=== PATIENT | male | born 1945 | race Two or more races ===

== ENCOUNTER 2020-04-17 18:52 | Inpatient (IN) | payer MEDICARE, OTHER ==
[~2020-04-17] VITALS: Ht 177.8 cm; Wt 129.9 kg
[2020-04-17] MEDS ORDERED: PIPERACILLIN-TAZO 4.5GM 100 ML IV ONE (19:45)
[2020-04-17] MEDS ORDERED: SODIUM CHLORIDE 0.9% 2,000 ML IV ONE (19:45)
[2020-04-17] MEDS ORDERED: HYDROcodone-ACET 10/325MG TAB PO ONE (21:30)
[2020-04-17 22:01] LABS: Lactic Acid w/Reflex 2.1 mmol/L (0.4-2.0)
[2020-04-17 22:37] LABS: Urine Bacteria MANY /hpf (None Seen); Urine Blood TRACE /uL (Negative); Urine WBC 17 /hpf (0 - 3)
[2020-04-17 22:56] LABS: Basophils # (auto) 0 10 ^3/uL (0-0.2); Basophils % (auto) 0.3 % (0.0-2.0); Eosinophils # (auto) 0 10 ^3/uL (0-0.8); Eosinophils % (auto) 0.1 % (0.0-7.0); Hematocrit 38.9 % (41.0-53.0); Hemoglobin 12.8 g/dL (13.5-17.5); Lymphocytes # (auto) 0.9 10 ^3/uL (0.4-5.4); Lymphocytes % (auto) 13.1 % (10.0-50.0); Mean Corpuscular Hemoglobin 31.8 pg (28.0-32.0); Mean Corpuscular Hgb Conc. 32.9 g/dL (32.0-36.0); Mean Corpuscular Volume 96.8 fL (80.0-100.0); Monocytes # (auto) 0.7 10 ^3/uL (0-1.3); Monocytes % (auto) 10.3 % (0.0-12.0); Neutrophils # (auto) 5.4 10 ^3/uL (1.6-8.6); Neutrophils % (auto) 76.2 % (37.0-80.0); Nucleated Red Blood Cells % 0.1 %; Platelet Count (auto) 171 10^3/uL (140-450); Red Blood Cells 4.02 10^6/uL (4.5-5.90); Red Cell Distribution Width 14.5 % (11.8-14.3); White Blood Cell 7.1 10^3/uL (4.4-10.8)
[2020-04-17 23:00] LABS: Albumin 3.3 g/dL (3.4-5.0); Bilirubin, Total 0.5 mg/dL (0.2-1.0); Calcium 8.1 mg/dL (8.5-10.1); Magnesium 1.9 mg/dL (1.6-2.6); Potassium 3.6 mmol/L (3.5-5.1); Total Protein 6.6 g/dL (6.4-8.2)
[2020-04-17 23:15] LABS: BUN/Creatinine Ratio 16.9
[2020-04-17] MEDS ORDERED: ENOXAPARIN SOD 120 MG/0.8 ML SYRINGE SC ONE (23:30)
[2020-04-17 23:31] LABS: CRP High Sensitivity 7.46 mg/dL (< 0.3)
[2020-04-17] MEDS ORDERED: AZITHROMYCIN 500MG/ 250ML 250 ML IV ONE (23:45)
[2020-04-18] MEDS ORDERED: SODIUM CHLORIDE 0.9% 1,000 ML IV SCH (00:31)
[2020-04-18] MEDS ORDERED: ONDANSETRON HCL 4 MG/2 ML VIAL IV PRN (00:45)
[2020-04-18] MEDS ORDERED: DEXTROSE (50%) 50ML SYRG IV PRN (00:45)
[2020-04-18] MEDS ORDERED: NITROGLYCERIN 0.4 MG SL TAB SL PRN (00:45)
[2020-04-18] MEDS ORDERED: MORPHINE SULF INJ 2 MG/ML SYRINGE 1ML IV PRN (00:45)
[2020-04-18] MEDS ORDERED: ALBUMIN 5% 250 ML IV ONE (00:45)
[2020-04-18 05:15] VITALS: BP 125/89
[2020-04-18 06:13] VITALS: BP 125/89
[2020-04-18] MEDS: FUROSEMIDE 40 MG TAB PO SCH ×2 (06:25→18:22)
[2020-04-18] MEDS: ACCU-CHEK COMFORT CURVE STRIP VI SCH ×4 (06:25→23:35)
[2020-04-18] MEDS ORDERED: FLUT0.05 NAS (06:44)
[2020-04-18] MEDS ORDERED: TACR1CAP19 OR (06:44)
[2020-04-18] MEDS ORDERED: FURO20TA3 PO (06:44)
[2020-04-18] MEDS ORDERED: INSR100KIT SC (06:44)
[2020-04-18] MEDS ORDERED: CHOL200039 PO (06:44)
[2020-04-18] MEDS ORDERED: MAGN400T40 OR (06:44)
[2020-04-18] MEDS ORDERED: BACL10TA PO (06:44)
[2020-04-18] MEDS ORDERED: LATA0.0019 OP (06:44)
[2020-04-18] MEDS ORDERED: METF-929 PO (06:44)
[2020-04-18] MEDS ORDERED: MYCO250C PO (06:44)
[2020-04-18] MEDS ORDERED: ASPI81CH43 PO (06:44)
[2020-04-18] MEDS ORDERED: ALBU2TAB4 PO (06:44)
[2020-04-18] MEDS ORDERED: PANT1INJ3 PO (06:44)
[2020-04-18] MEDS ORDERED: LOSA25TA38 PO (06:44)
[2020-04-18] MEDS ORDERED: METO-169 PO (06:44)
[2020-04-18] MEDS ORDERED: CALC667C PO (06:44)
[2020-04-18] MEDS ORDERED: ATOR40TA52 PO (06:44)
[2020-04-18] MEDS ORDERED: GABA300C10 PO (06:44)
[2020-04-18] MEDS ORDERED: ALLO300T2 PO (06:44)
[2020-04-18] MEDS ORDERED: TAMS0.4C36 PO (06:44)
[2020-04-18] MEDS ORDERED: BUDE2SUS3 IN (06:44)
[2020-04-18] MEDS ORDERED: DULO60CA PO (06:44)
[2020-04-18] MEDS: InsuLIN REG 1unit/0.01ml Soln (100units/ml) SC SCH ×4 (06:46→23:37)
--- NOTE | 2020-04-18 07:15 | NUR ---
Respiratory note: PT IS RESTING COMFORTABLY. NO RESPIRATORY DISTRESS NOTED. SPO2 97% ON 4LNC, HR 98, RR 22, BS CLEAR BILATERALLY. NO FURTHER RESPIRATORY INTERVENTIONS INDICATED AT THIS TIME. WILL CONTINUE TO MONITOR PT. CHARTING COMPLETE FROM OUTSIDE OF PT ROOM PER COVID-19 PRECAUTIONS/PROTOCOL.
--- NOTE | 2020-04-18 08:39 | NUR ---
OPENING SHIFT NOTE: PATIENT RESTING IN BED AWAKE A/OX4 PATIENT RESPIRATIONS EVEN AND UNLABORED ON ROOM AIR. UPDATED ON PLAN OF CARE, FALL PRECAUTIONS IN PLACE, CALL LIGHT WITHIN REACH, WILL CONTINUE TO MONITOR.
[2020-04-18 09:00] VITALS: BP_SYST 121; BP_SYST 124; BP_DIAS 61; BP_DIAS 67
--- NOTE | 2020-04-18 09:13 | NUR ---
CELLCEPT MED PO: CALL FROM PHARMACIST FOR PROPER DOSAGE AND ROUTE. 0.9ML PO DOUBLE VERIFIED.
[2020-04-18] MEDS ORDERED: DexAMETHasone SOD PHOS 10MG/1ML VIAL INJ IV SCH (10:00)
[2020-04-18] MEDS ORDERED: MYCOPHENOLATE 250 MG CAP PO SCH (10:00)
[2020-04-18] MEDS ORDERED: ENOXAPARIN SOD 40 MG/0.4 ML SYRINGE SC SCH (10:00)
[2020-04-18] MEDS ORDERED: METOPROLOL TARTRATE 50 MG TAB PO SCH (10:00)
[2020-04-18] MEDS ORDERED: DOXYCYCLINE 100MG/250ML 250 ML IV SCH (10:00)
[2020-04-18] MEDS ORDERED: levoFLOXacin 500MG 100 ML IV SCH (10:00)
[2020-04-18] MEDS: ZINC SULFATE 220mg CAP or TAB PO SCH (10:35)
[2020-04-18] MEDS: MYCOPHENOLATE 1000mg/5ml ORALsusp 200mg/ml PO SCH ×2 (10:35→21:00)
[2020-04-18] MEDS: FAMOTIDINE 20 MG TAB PO SCH ×2 (10:36→21:00)
[2020-04-18] MEDS: ASCORBIC ACID 1,000 MG TAB PO SCH (10:36)
[2020-04-18] MEDS: TACROLIMUS 1 MG CAP PO SCH ×2 (10:36→21:00)
[2020-04-18] MEDS: ALLOPURINOL 300 MG TAB PO SCH (10:37)
[2020-04-18] MEDS: CHOLECALCIFEROL (VITD3) 2,000 UNIT CAP PO SCH (10:37)
[2020-04-18] MEDS: LOSARTAN POTASSIUM 25 MG TAB PO SCH (10:38)
[2020-04-18] MEDS: HYDROcodone-ACET 5/325MG TAB PO PRN ×2 (10:59→18:28)
--- NOTE | 2020-04-18 11:49 | NUR ---
MULTI PURPOSE MACHINE OPERATOR AT BEDSIDE ATTEMPTING IV ACCESS.
[2020-04-18 12:00] VITALS: BP 117/87
--- NOTE | 2020-04-18 12:04 | NUR ---
NEW IV: RIGHT FA 22G.
[2020-04-18] MEDS ORDERED: SODIUM CHLORIDE 0.9% 1,000 ML IV ONE (12:30)
[2020-04-18] MEDS ORDERED: ENOXAPARIN SOD 100 MG/1 ML SYRINGE SC ONE (12:30)
[2020-04-18] MEDS ORDERED: DexAMETHasone 4 MG TAB PO ONE (12:30)
[2020-04-18] MEDS ORDERED: levoFLOXacin 250 MG TAB PO ONE (12:30)
--- NOTE | 2020-04-18 19:07 | NUR ---
CARE ENDORSED TO NOC RN.
--- NOTE | 2020-04-18 19:30 | NUR ---
Opening Shift Note Assumed care of patient, awake and alert. No S/S of distress/SOB or pain. Insructed on POC and to callfor assist PRN, will continue to monitor for changes Q1hr and PRN. Fall and safety precautions in place. Call light within reach.
--- NOTE | 2020-04-18 20:00 | NUR ---
IV ACCESS Attempted to flush IV access in RFA, infiltrated. Informed patient that new IV access will need to be placed for emergency access. Patient stated "later, I've been poked so many times." Will attempt to insert new IV access at later time.
[2020-04-18] MEDS: DOXYCYCLINE 100 MG TAB/CAP PO SCH (20:59)
[2020-04-18] MEDS: ATORVASTATIN 20 MG TAB PO SCH (20:59)
--- NOTE | 2020-04-18 21:00 | NUR ---
IV ACCESS Patient was asked if now is a good time to insert new IV access, patient refusing, stating "I don't want it." Attempted to educate patient that IV access is needed for emergency access. Patient verbalized understanding of teaching, but still refusing. Will inform foam charger
[2020-04-18] MEDS: ENOXAPARIN SOD 100 MG/1 ML SYRINGE SC SCH (21:01)
[2020-04-18] MEDS: TEMAZEPAM 15 MG CAP PO PRN (21:01)
[2020-04-18] MEDS: INSULIN LANTUS (GLARGINE) 1 /0.01ml (100units/ml) SC SCH (21:13)
[2020-04-18] MEDS: METOPROLOL TARTRATE 50 MG TAB PO SCH (21:50)
[2020-04-18 22:00] VITALS: BP 145/90
[2020-04-18] MEDS: BUDESONIDE (INHALATION) 180 MCG IH IN SCH (22:00)
--- NOTE | 2020-04-18 22:20 | NUR ---
Respiratory note: MEDICATION HELD AT THIS TIME UNTIL COVID RESULTS RETURN. PT CURRENTLY ON NC4L SPO2 94%, HR 67, RR 18. BS CLEAR/DIM T/O. NO SOB OR DISTRESS NOTED.
[2020-04-19] MEDS: HYDROcodone-ACET 5/325MG TAB PO PRN ×4 (00:39→19:38)
[2020-04-19 05:00] VITALS: BP 122/77
[2020-04-19] MEDS: FUROSEMIDE 40 MG TAB PO SCH ×2 (05:12→18:19)
[2020-04-19] MEDS: ACCU-CHEK COMFORT CURVE STRIP VI SCH ×4 (05:21→23:36)
[2020-04-19] MEDS: InsuLIN REG 1unit/0.01ml Soln (100units/ml) SC SCH ×4 (05:26→23:35)
[2020-04-19 06:42] LABS: Basophils # (auto) 0 10 ^3/uL (0-0.2); Basophils % (auto) 0.2 % (0.0-2.0); Eosinophils # (auto) 0 10 ^3/uL (0-0.8); Eosinophils % (auto) 0.1 % (0.0-7.0); Hematocrit 41.6 % (41.0-53.0); Hemoglobin 13.7 g/dL (13.5-17.5); Lymphocytes # (auto) 1.2 10 ^3/uL (0.4-5.4); Mean Corpuscular Hemoglobin 31.6 pg (28.0-32.0); Mean Corpuscular Hgb Conc. 32.9 g/dL (32.0-36.0); Mean Corpuscular Volume 95.9 fL (80.0-100.0); Monocytes # (auto) 0.6 10 ^3/uL (0-1.3); Monocytes % (auto) 9.6 % (0.0-12.0); Neutrophils # (auto) 4.9 10 ^3/uL (1.6-8.6); Neutrophils % (auto) 72.1 % (37.0-80.0); Platelet Count (auto) 184 10^3/uL (140-450); Red Blood Cells 4.34 10^6/uL (4.5-5.90); Red Cell Distribution Width 14.5 % (11.8-14.3); White Blood Cell 6.8 10^3/uL (4.4-10.8)
[2020-04-19 06:53] LABS: Potassium 3.5 mmol/L (3.5-5.1)
[2020-04-19 06:57] LABS: Albumin 3.2 g/dL (3.4-5.0); BUN/Creatinine Ratio 16.7
[2020-04-19 07:02] LABS: Magnesium 2.1 mg/dL (1.6-2.6)
[2020-04-19 07:04] LABS: Bilirubin, Total 0.6 mg/dL (0.2-1.0); Total Protein 7.3 g/dL (6.4-8.2)
[2020-04-19 07:08] LABS: Cholesterol 109 mg/dL (< 200); HDL Cholesterol 31 mg/dL (40-59); LDL Cholesterol 67 mg/dL (< 100); Triglycerides 135 mg/dL (< 150)
--- NOTE | 2020-04-19 07:30 | NUR ---
Opening Shift Note Assumed care of patient, awake and alert. No S/S of distress/SOB or pain. Instructed on POC and to call for assist PRN, will continue to monitor for changes Q1hr and PRN. Fall precautions in place per safety protocol.
--- NOTE | 2020-04-19 08:15 | NUR ---
Patient Will be moving to Room 292A with ANTWAN Blair as patient is Covid negative. Gave report to Rossy at this time.
--- NOTE | 2020-04-19 08:35 | NUR ---
Patient transferred to new room. No distress, sob, or pain noted at time of departure.
[2020-04-19 09:00] VITALS: BP 155/90
[2020-04-19] MEDS: ENOXAPARIN SOD 100 MG/1 ML SYRINGE SC SCH ×2 (09:37→20:54)
[2020-04-19] MEDS: DOXYCYCLINE 100 MG TAB/CAP PO SCH (09:37)
[2020-04-19] MEDS: FAMOTIDINE 20 MG TAB PO SCH ×2 (09:38→20:50)
[2020-04-19] MEDS: LOSARTAN POTASSIUM 25 MG TAB PO SCH (09:39)
[2020-04-19] MEDS: ASPirin-EC 81 mg tab PO SCH (09:39)
[2020-04-19] MEDS: ALLOPURINOL 300 MG TAB PO SCH (09:40)
[2020-04-19] MEDS: METOPROLOL TARTRATE 50 MG TAB PO SCH ×2 (09:40→20:51)
[2020-04-19] MEDS: ZINC SULFATE 220mg CAP or TAB PO SCH ×2 (09:42→11:46)
[2020-04-19] MEDS: ASCORBIC ACID 1,000 MG TAB PO SCH (10:00)
[2020-04-19] MEDS: BUDESONIDE (INHALATION) 180 MCG IH IN SCH (10:00)
[2020-04-19] MEDS: CHOLECALCIFEROL (VITD3) 2,000 UNIT CAP PO SCH (10:00)
[2020-04-19] MEDS ORDERED: levoFLOXacin 250 MG TAB PO SCH (10:00)
[2020-04-19] MEDS ORDERED: DexAMETHasone 4 MG TAB PO SCH (10:00)
--- NOTE | 2020-04-19 10:00 | NUR ---
pulmicort held pending garcía virus results.
[2020-04-19] MEDS: ACETAMINOPHEN 325 MG TAB PO PRN ×2 (11:46→20:52)
[2020-04-19] MEDS: MYCOPHENOLATE 1000mg/5ml ORALsusp 200mg/ml PO SCH ×2 (11:47→22:49)
[2020-04-19] MEDS: TACROLIMUS 1 MG CAP PO SCH ×2 (11:48→22:48)
[2020-04-19 13:00] VITALS: BP 145/84
[2020-04-19 17:00] VITALS: BP 137/78
[2020-04-19] MEDS ORDERED: LEVO500T21 PO (17:01)
[2020-04-19] MEDS ORDERED: SODIUM CHLORIDE 0.9% 1,000 ML IV ONE (17:15)
--- NOTE | 2020-04-19 18:00 | NUR ---
IV TRIED TO OBTAIN IV access, via clean sterile technique by inserting [20 AND 22] gauge catheter at [RIGHT UPPER ARM AND RIGHT FOREARM] after [3] attempt(s). IV access was not obtained. No trauma to site. Patient tolerated well.
[2020-04-19] MEDS ORDERED: IOHEXOL 350 MG/ML 100ML IJ ONE (18:14)
--- NOTE | 2020-04-19 19:00 | NUR ---
Opening Shift Note Assumed care of patient with primary RN Vasiliy. Patient is awake and alert x4, patient was sitting on side of bed, call light within reach, bed in lowest locked position, bed rails up x2. No S/S of distress, noted that patient has SOB, patient on 2L NC and has pain 10/10. Instructed on POC and to call for assist PRN, will continue to monitor for changes. Signed: 04/19/20 at 1948 by AYESHA SCHWARZ <Co-Signature Required> Co-Signed: 04/19/20 at 1948 by VASILIY RASMUSSEN RN
--- NOTE | 2020-04-19 19:15 | NUR ---
Opening Note Assumed care of patient with primary RN Vasiliy. Patient is awake and alert. Patient laying in bed, No S/S of distress/SOB or pain. Sling in place on left arm. Instructed patient to keep it on at all times and not raise arm above head. Educated on no heavy lifting. Bed in lowest locked position, side rails up x2, call light within reach. Instructed on POC and to call for assist PRN, will continue to monitor for changes. Signed: 04/19/20 at 1999 by AYESHA SCHWARZ <Co-Signature Required> Co-Signed: 04/19/20 at 1999 by VASILIY RASMUSSEN RN Addendum: 04/19/20 at 8306 by VASILIY RASMUSSEN RN WRONG PATIENT Signed: 04/19/20 at 7717 by VASILIY RASMUSSEN RN
--- NOTE | 2020-04-19 19:44 | NUR ---
NO IV access During assessment noted patient has no IV access. Patient stated "I do not want an IV" also stated he would rather go to [place] and finish treatment there. Educated on risks of not having an IV access and impact on his care and how it would impact further testing. Signed: 04/19/20 at 1953 by AYESHA SCHWARZ SN <Co-Signature Required> Co-Signed: 04/19/20 at 1953 by KILO RASMUSSEN RN
--- NOTE | 2020-04-19 19:44 | NUR ---
Pain management Patient was medicated for pain as prescribed. Signed: 04/19/201950 by AYESHA SCHWARZ SN <Co-Signature Required> Co-Signed: 04/19/201950 by KILO RASMUSSEN RN
[2020-04-19] MEDS: ATORVASTATIN 20 MG TAB PO SCH (20:51)
[2020-04-19] MEDS: TEMAZEPAM 15 MG CAP PO PRN (20:52)
[2020-04-19] MEDS: INSULIN LANTUS (GLARGINE) 1 /0.01ml (100units/ml) SC SCH (21:03)
[2020-04-19 22:00] VITALS: BP 159/84
[2020-04-20 05:00] VITALS: BP 132/60
[2020-04-20] MEDS: ACCU-CHEK COMFORT CURVE STRIP VI SCH ×4 (05:03→21:01)
[2020-04-20] MEDS: FUROSEMIDE 40 MG TAB PO SCH ×2 (05:03→18:00)
[2020-04-20] MEDS: InsuLIN REG 1unit/0.01ml Soln (100units/ml) SC SCH ×3 (05:04→18:00)
[2020-04-20] MEDS: HYDROcodone-ACET 5/325MG TAB PO PRN ×4 (05:07→21:03)
--- NOTE | 2020-04-20 06:10 | NUR ---
Lab draw microbiology technician tried to obtain blood sample that was unsuccessful. Stated she will ask someone else to come in and try at a later time.
--- NOTE | 2020-04-20 07:30 | NUR ---
Opening Note Received report from manager night RN. Patient is awake, alert and oriented x4. Patient is on 2L NC, respirations even and unlabored. Patient denies pain at this time. Patient has no IV access. Patient educated on importance of having IV access, patient states he will let us attempt one more time. Reviewed plan of care with patient, patient verbalized understanding. Bed in low and locked position, call light within reach. Will continue to monitor Q1 hour and PRN.
[2020-04-20 09:00] VITALS: BP 143/85
--- NOTE | 2020-04-20 09:50 | NUR ---
IV attempt Charge nurse Nancie at bedside attempting to gain IV access at this time. Will continue to monitor Q1 hour and PRN.
[2020-04-20] MEDS: TACROLIMUS 1 MG CAP PO SCH ×2 (12:04→21:01)
[2020-04-20] MEDS: ENOXAPARIN SOD 100 MG/1 ML SYRINGE SC SCH ×2 (12:04→21:01)
[2020-04-20] MEDS: MYCOPHENOLATE 1000mg/5ml ORALsusp 200mg/ml PO SCH ×2 (12:04→21:00)
[2020-04-20] MEDS: levoFLOXacin 500 MG TAB PO SCH (12:05)
[2020-04-20] MEDS: ALLOPURINOL 300 MG TAB PO SCH (12:06)
[2020-04-20] MEDS: FAMOTIDINE 20 MG TAB PO SCH ×2 (12:06→21:01)
[2020-04-20] MEDS: ASPirin-EC 81 mg tab PO SCH (12:06)
[2020-04-20] MEDS: LOSARTAN POTASSIUM 25 MG TAB PO SCH (12:13)
[2020-04-20] MEDS: ASCORBIC ACID 500 MG TAB PO SCH (12:13)
[2020-04-20] MEDS: METOPROLOL TARTRATE 50 MG TAB PO SCH ×2 (12:14→21:00)
--- NOTE | 2020-04-20 12:35 | NUR ---
Unable to obtain IV access This RN and nurse discharge Nancie at bedside, still unable to obtain IV access at this time.
[2020-04-20 12:36] LABS: Potassium 3.5 mmol/L (3.5-5.1)
[2020-04-20 12:41] LABS: BUN/Creatinine Ratio 21.1; Calcium 8.9 mg/dL (8.5-10.1)
--- NOTE | 2020-04-20 12:53 | NUR ---
Dr. Up at nursing station MD at station updating this RN on plan of care. MD aware that patient still does not have IV access. MD states "to keep trying." Will continue to monitor Q1 hour and PRN.
[2020-04-20 13:00] VITALS: BP 128/84
--- NOTE | 2020-04-20 14:39 | NUR ---
IV Insertion IV access obtained, via clean sterile technique by inserting 22 gauge catheter to the left AC. IV secured properly. No trauma to site. Patient tolerated well. Will continue to monitor Q1 hour and PRN.
[2020-04-20 16:50] VITALS: BP 133/65
--- NOTE | 2020-04-20 16:58 | NUR ---
PATIENT REFUSED PT. Addendum: 04/20/20 at 1658 by DANNI KIRAN PTT Amended: Links added.
--- NOTE | 2020-04-20 19:06 | NUR ---
Closing Note Report given to shift superintendent caustic cresylate RN. No signs or symptoms of distress noted at this time.
--- NOTE | 2020-04-20 19:35 | NUR ---
Opening Shift Note Assumed care patient is awake and alert x4, patient is laying in bed, call light within reach, bed in lowest locked position, bed rails up x2. No S/S of distress, noted that patient gets SOB while talking, patient on 2L NC and has pain 10/10. Instructed on POC and to call for assist PRN, will continue to monitor for changes. Patient was educated in the POC regarding testing. Explained to him the fact that CT was not done because the IV access he has, the catheter is not big enough. Explained to patient that in the morning the Picc line nurse could try to get a better IV access and that the test could get performed. Patient stated " If I cant have this done tomorrow[facility]" " I've been just laying here for a couple of days"
[2020-04-20] MEDS: ATORVASTATIN 20 MG TAB PO SCH (21:00)
[2020-04-20 22:00] VITALS: BP 128/91
[2020-04-20] MEDS: INSULIN LANTUS (GLARGINE) 1 /0.01ml (100units/ml) SC SCH (22:45)
[2020-04-21] MEDS: InsuLIN REG 1unit/0.01ml Soln (100units/ml) SC SCH ×3 (00:29→12:00)
[2020-04-21 05:00] VITALS: BP 135/84
[2020-04-21] MEDS: ACCU-CHEK COMFORT CURVE STRIP VI SCH ×2 (05:00→11:48)
[2020-04-21] MEDS: FUROSEMIDE 40 MG TAB PO SCH (05:01)
[2020-04-21 09:00] VITALS: BP 127/86
[2020-04-21] MEDS: levoFLOXacin 500 MG TAB PO SCH (09:35)
[2020-04-21] MEDS: ASPirin-EC 81 mg tab PO SCH (09:35)
[2020-04-21] MEDS: ASCORBIC ACID 500 MG TAB PO SCH (09:35)
[2020-04-21] MEDS: FAMOTIDINE 20 MG TAB PO SCH (09:35)
[2020-04-21] MEDS: ALLOPURINOL 300 MG TAB PO SCH (09:36)
[2020-04-21] MEDS: METOPROLOL TARTRATE 50 MG TAB PO SCH (09:36)
[2020-04-21] MEDS: LOSARTAN POTASSIUM 25 MG TAB PO SCH (09:37)
[2020-04-21] MEDS: ENOXAPARIN SOD 100 MG/1 ML SYRINGE SC SCH (09:37)
[2020-04-21] MEDS: TACROLIMUS 1 MG CAP PO SCH (10:04)
[2020-04-21] MEDS: MYCOPHENOLATE 1000mg/5ml ORALsusp 200mg/ml PO SCH (10:05)
[2020-04-21] MEDS: HYDROcodone-ACET 5/325MG TAB PO PRN (10:45)
--- NOTE | 2020-04-21 11:47 | NUR ---
1145 04/21/20 - Faxed to [facility] at [phone] face sheet, order for home oxygen 2L via [facility], H/P, progress note. Pending review and delivery of DME to bedside. Addendum: 04/21/20 at 1220 by Michelle Camp RN 1218 04/21/20 - Contacted by [employer] cash application representative who stated they do not accept Medi[employer]medi. Refaxed order to [facility] at [phone]. Pending review and delivery of DME to bedside.
[2020-04-21] MEDS ORDERED: IOHEXOL 350 MG/ML 100ML IJ ONE (12:08)
[2020-04-21 13:00] VITALS: BP 135/90
--- NOTE | 2020-04-21 13:46 | NUR ---
Assessment Patient is a 74-year-old male who is alert and oriented. Prior to admission patient lived home with his Nichole and functioned independently. Prior to admission patient could care for his own ADLs. Patient has a walker for home use. Patient does not have any other medical equipment. Patient informed me he is [facility]. Advised patient there is a social service consult for home oxygen. Informed patient clinical information will be faxed to [facility] and portable oxygen will be deliver to bedside and concentrate oxygen to home. Per patient he will return to his prior living arraignments post discharge and his will transport him home. Informed Patient he has a right to participate in all discharge planning. Patient verbalized understanding discharge plan. Faxed clinical information to [facility]. Per [facility] with [facility] a second ABG test is needed. Informed ANTWAN Jacobson. Addendum: 04/21/20 at 1349 by SHILPI DUFFY SS Amended: Links added.
[2020-04-21 14:53] VITALS: BP 135/90
--- NOTE | 2020-04-21 16:41 | NUR ---
D/C INSTRUCTIONS GIVEN TO PT. VERBALIZED UNDERSTANDING. ALL APPROPRIATE PAPERWORK SIGNED. IVS AND TELE BOX REMOVED. PORTABLE OXYGEN SENT WITH PATIENT. PT DISCHARGED HOME.
--- NOTE | 2020-04-21 17:26 | NUR ---
re-assessment Per consult [facility] for PT, home safety, and meds. Patient had no preference on who provides service. MD order sent to [facility]. waiting for reply back now. Addendum: 04/21/20 at 1727 by Maribel Low Amended: Links added.
--- NOTE | 2020-04-22 16:54 | NUR ---
re-assessment Per Conner at [facility] will start on 04/23/2020. Addendum: 04/22/20 at 1655 by Maribel ODONNELL Amended: Links added.
== END 2020-04-21 16:30 | disposition home health service (06) | DRG 871 ==
LOC: ER 18:52 → EDBD 18:52 → TELE 18:53 → TELE-E-ADS 04-18 05:15 → TELE-WESTW 04-19 08:45
PROVIDERS: ADMIT Nurse Practitioner; ATTEND Internal Medicine
DX: A41.9 Sepsis, unspecified organism (principal); I21.A1 Myocardial infarction type 2; I50.33 Acute on chronic diastolic (congestive) heart failure; J96.01 Acute respiratory failure with hypoxia; N39.0 Urinary tract infection, site not specified; Z94.4 Liver transplant status; E11.9 Type 2 diabetes mellitus without complications; E66.01 Morbid (severe) obesity due to excess calories; E78.5 Hyperlipidemia, unspecified; Z20.828 Contact with and (suspected) exposure to other viral communicable diseases; N40.0 Benign prostatic hyperplasia without lower urinary tract symptoms; J44.9 Chronic obstructive pulmonary disease, unspecified; I11.0 Hypertensive heart disease with heart failure; B96.4 Proteus (mirabilis) (morganii) as the cause of diseases classified elsewhere; Z79.4 Long term (current) use of insulin; Z68.35 Body mass index [BMI] 35.0-35.9, adult
CPT/HCPCS: 36415; 36600; 71045; 71275; 80048; 80053; 80061; 80197; 81001; 82728; 82805; 82962; 83036; 83605; 83615; 83735; 83880; 84443; 84484; 85025; 85379; 86141; 87040; 87086; 87088; 87186; 87426; 93005; 93306; 93970; 96365; 96366; 96368; 96372; 97110; 97116; 97163; 97530; 99291; G0378; J1815; J2543; J7507; J7517

== ENCOUNTER 2021-09-29 15:55 | Emergency (ER) | payer MEDICARE ==
[~2021-09-29] VITALS: Ht 172.7 cm; Wt 131.1 kg
[~2021-09-29 15:55] MED LIST: ALBU2TAB4 PO; ALLO300T2 PO; ASPI81CH43 PO; ATOR40TA52 PO; BACL10TA PO; BUDE2SUS3 IN; CALC667C PO; CHOL200039 PO; DULO60CA PO; FLUT0.05 NAS; FURO20TA3 PO; GABA300C10 PO; INSR100KIT SC; LATA0.0019 OP; LEVO500T31 PO; LOSA25TA38 PO; MAGN400T40 OR; METF-929 PO; METO-289 PO; MYCO250C PO; PANT1INJ3 PO; TACR1CAP19 OR; TAMS0.4C36 PO
[2021-09-29 18:32] LABS: Urine WBC None Seen /hpf (0 - 3)
[2021-09-29 19:07] LABS: Urine Bacteria FEW /hpf (None Seen); Urine Blood Negative /uL (Negative); Urine Hyaline Cast FEW /lpf (0 - 2); Urine Mucus FEW (None Seen); Urine Specific Gravity 1.012 (1.001-1.035)
[2021-09-29 19:09] LABS: Basophils # (auto) 0.1 10 ^3/uL (0-0.2); Basophils % (auto) 0.6 % (0.0-2.0); Eosinophils # (auto) 0.2 10 ^3/uL (0-0.8); Eosinophils % (auto) 2.3 % (0.0-7.0); Hematocrit 42.8 % (41.0-53.0); Hemoglobin 14.1 g/dL (13.5-17.5); Lymphocytes # (auto) 2.6 10 ^3/uL (0.4-5.4); Lymphocytes % (auto) 25.3 % (10.0-50.0); Mean Corpuscular Hemoglobin 32.8 pg (28.0-32.0); Mean Corpuscular Volume 99.4 fL (80.0-100.0); Monocytes # (auto) 0.6 10 ^3/uL (0-1.3); Monocytes % (auto) 5.9 % (0.0-12.0); Neutrophils # (auto) 6.8 10 ^3/uL (1.6-8.6); Neutrophils % (auto) 65.9 % (37.0-80.0); Nucleated Red Blood Cells % 0.1 %; Red Blood Cells 4.31 10^6/uL (4.5-5.90); White Blood Cell 10.3 10^3/uL (4.4-10.8)
[2021-09-29 19:30] LABS: Albumin 3.6 g/dL (3.4-5.0); Calcium 8.8 mg/dL (8.5-10.1)
[2021-09-29 19:35] LABS: BUN/Creatinine Ratio 15.9; Bilirubin, Total 0.3 mg/dL (0.2-1.0); Total Protein 7.3 g/dL (6.4-8.2)
[2021-09-29 20:00] VITALS: BP 133/68
== END 2021-09-29 21:51 | disposition left against medical advice (07) ==
LOC: ER 15:55
DX: G45.9 Transient cerebral ischemic attack, unspecified (principal); J44.9 Chronic obstructive pulmonary disease, unspecified; E78.5 Hyperlipidemia, unspecified; I10 Essential (primary) hypertension; Z79.899 Other long term (current) drug therapy; Z88.6 Allergy status to analgesic agent; Z79.4 Long term (current) use of insulin
CPT/HCPCS: 36415; 70450; 71045; 80053; 81001; 82962; 84484; 85025; 93005

== ENCOUNTER 2023-05-26 19:34 | Inpatient (IN) | payer MEDICARE, OTHER ==
[~2023-05-26] VITALS: Ht 172.7 cm; Wt 120.2 kg
[~2023-05-26 19:34] MED LIST changes: +ALBU2TAB11 PO; -ALBU2TAB4 PO; -DULO60CA PO; +DULO60CA41 PO; +GABA-1250 PO; -GABA300C10 PO; -LATA0.0019 OP; +LATA0.008 OP; +LOSA25TA15 PO; -LOSA25TA38 PO
[2023-05-26] MEDS ORDERED: SODIUM CHLORIDE 0.9% 1,000 ML IV ONE (20:00)
[2023-05-26 20:30] VITALS: RESP 25; O2SAT 95
[2023-05-26 22:10] LABS: Basophils # (auto) 0 10 ^3/uL (0-0.2); Basophils % (auto) 0.2 % (0.0-2.0); Eosinophils # (auto) 0 10 ^3/uL (0-0.8); Eosinophils % (auto) 0.1 % (0.0-7.0); Hematocrit 43.6 % (41.0-53.0); Hemoglobin 14.4 g/dL (13.5-17.5); Lymphocytes # (auto) 2.1 10 ^3/uL (0.4-5.4); Lymphocytes % (auto) 8.9 % (10.0-50.0); Mean Corpuscular Hemoglobin 33.3 pg (28.0-32.0); Mean Corpuscular Hgb Conc. 33.1 g/dL (32.0-36.0); Mean Corpuscular Volume 100.5 fL (80.0-100.0); Monocytes # (auto) 1.8 10 ^3/uL (0-1.3); Monocytes % (auto) 7.6 % (0.0-12.0); Neutrophils # (auto) 19.3 10 ^3/uL (1.6-8.6); Neutrophils % (auto) 83.2 % (37.0-80.0); Red Blood Cells 4.34 10^6/uL (4.5-5.90); White Blood Cell 23.2 10^3/uL (4.4-10.8)
[2023-05-26] MEDS ORDERED: MORPHINE SULFATE 4 MG/ML SYR/VIAL IV ONE (22:15)
[2023-05-26 22:28] LABS: Alanine Aminotransferase 18 U/L (7-40); Alkaline Phosphatase 76 U/L (46-116); Anion Gap 8 (5-15); BUN/Creatinine Ratio 10.6 (10.0-20.0); Blood Urea Nitrogen 12 mg/dL (9-23); Calcium 9.7 mg/dL (8.5-10.1); Carbon Dioxide 28 mmol/L (20-30); Chloride 104 mmol/L (98-107); Glucose 131 mg/dL (74-106); Potassium 3.8 mmol/L (3.5-5.1); Sodium 140 mmol/L (136-145)
[2023-05-26 22:29] LABS: Albumin 4.5 g/dL (3.2-4.8); Aspartate Aminotransferase 18 U/L (13-40); Bilirubin, Total 1.3 mg/dL (0.2-1.0); Total Protein 7.2 g/dL (5.7-8.2)
[2023-05-27 00:40] LABS: Urine Bacteria MANY /hpf (None Seen); Urine Blood Negative /uL (Negative); Urine Clarity Clear (Clear); Urine Color Yellow (Yellow); Urine Hyaline Cast FEW /lpf (0 - 2); Urine Mucus FEW (None Seen); Urine Protein, UAD TRACE (Negative); Urine Specific Gravity 1.024 (1.001-1.035); Urine Urobilinogen Normal (Negative); Urine WBC 9 /hpf (0 - 3); Urine pH 5.5 (5.0-8.0)
[2023-05-27] MEDS ORDERED: VANCOMYCIN PER PHARMACY 0 MG IV SCH ×2 (01:00→09:15)
[2023-05-27] MEDS ORDERED: PIPERACILLIN-TAZO 4.5GM 100 ML IV ONE (01:00)
[2023-05-27] MEDS ORDERED: TEMAZEPAM 15 MG CAP PO ONE (01:30)
[2023-05-27] MEDS ORDERED: VANCOMYCIN 1GM/250ML 250 ML IV ONE (01:30)
[2023-05-27] MEDS ORDERED: ONDANSETRON HCL 4 MG/2 ML VIAL IV PRN (03:45)
[2023-05-27] MEDS ORDERED: DEXTROSE (50%) 50ML SYRG IV PRN (03:45)
[2023-05-27] MEDS ORDERED: ACETAMINOPHEN 325 MG TAB PO PRN (03:45)
[2023-05-27] MEDS ORDERED: DOCUSATE SOD 100 MG CAP PO PRN (03:45)
[2023-05-27] MEDS: MORPHINE SULFATE INJ 2 MG/ml SYRG IV PRN ×4 (04:28→19:59)
[2023-05-27] MEDS ORDERED: SODIUM CHLOR 0.9% PF (SALINE LOCK) 10ML VIAL/SYR IV SCH (06:00)
[2023-05-27] MEDS ORDERED: MORPHINE SULFATE INJ 2 MG/ml SYRG IV PRN (06:00)
[2023-05-27] MEDS ORDERED: NITROGLYCERIN 0.4 MG SL TAB SL PRN (06:00)
[2023-05-27] MEDS: ACCU-CHEK COMFORT CURVE STRIP VI SCH ×4 (06:33→21:54)
[2023-05-27] MEDS: InsuLIN REG 1unit/0.01ml Soln (100units/ml) SC SCH ×3 (06:38→18:34)
[2023-05-27 06:44] LABS: Basophils # (auto) 0.1 10 ^3/uL (0-0.2); Basophils % (auto) 0.2 % (0.0-2.0); Eosinophils # (auto) 0.1 10 ^3/uL (0-0.8); Eosinophils % (auto) 0.3 % (0.0-7.0); Hematocrit 38.6 % (41.0-53.0); Hemoglobin 12.9 g/dL (13.5-17.5); Mean Corpuscular Hemoglobin 33.5 pg (28.0-32.0); Mean Corpuscular Hgb Conc. 33.4 g/dL (32.0-36.0); Mean Corpuscular Volume 100.3 fL (80.0-100.0); Monocytes # (auto) 1.7 10 ^3/uL (0-1.3); Monocytes % (auto) 7.6 % (0.0-12.0); Neutrophils % (auto) 78.9 % (37.0-80.0); Red Blood Cells 3.85 10^6/uL (4.5-5.90); Red Cell Distribution Width 14.9 % (11.8-14.3); White Blood Cell 22.9 10^3/uL (4.4-10.8)
[2023-05-27 07:12] LABS: Alanine Aminotransferase 14 U/L (7-40); Albumin 3.9 g/dL (3.2-4.8); Alkaline Phosphatase 65 U/L (46-116); Anion Gap 6 (5-15); Aspartate Aminotransferase 13 U/L (13-40); BUN/Creatinine Ratio 10.5 (10.0-20.0); Bilirubin, Total 1.4 mg/dL (0.2-1.0); Blood Urea Nitrogen 11 mg/dL (9-23); Calcium 8.8 mg/dL (8.5-10.1); Carbon Dioxide 28 mmol/L (20-30); Chloride 106 mmol/L (98-107); Glucose 137 mg/dL (74-106); Potassium 3.5 mmol/L (3.5-5.1); Sodium 140 mmol/L (136-145); Total Protein 6.3 g/dL (5.7-8.2)
[2023-05-27 07:41] VITALS: PULSE 101; RESP 17; O2SAT 96
[2023-05-27] MEDS ORDERED: cefTRIAXone 1GM/50ML D5W 50 ML IV SCH (09:00)
[2023-05-27] MEDS: FAMOTIDINE (10MG/ML) 2ML VL IV SCH ×2 (09:37→21:48)
[2023-05-27] MEDS: ASPirin 81 mg TAB PO SCH (09:38)
[2023-05-27] MEDS: TACROLIMUS 1 MG CAP PO SCH ×2 (09:39→21:48)
[2023-05-27] MEDS: PIPERACILLIN-TAZOB 3.375GM 100 ML IV SCH ×3 (09:39→21:49)
[2023-05-27] MEDS: SODIUM CHLORIDE 0.9% 1,000 ML IV SCH ×2 (09:39→20:17)
[2023-05-27] MEDS ORDERED: SODIUM CHLORIDE 0.9% 1,000 ML IV ONE (13:45)
[2023-05-27] MEDS: VANCOMYCIN 1GM/250ML 250 ML IV SCH (15:26)
[2023-05-27 17:00] VITALS: BP 112/60; PULSE 89; RESP 22; TEMP 98.4; O2SAT 93
[2023-05-27 20:00] VITALS: PULSE 104
[2023-05-27 22:00] VITALS: BP 113/62; PULSE 98; RESP 19; TEMP 98.9; O2SAT 99
[2023-05-27] MEDS ORDERED: ATORVASTATIN 20 MG TAB PO SCH (22:00)
[2023-05-27] MEDS ORDERED: InsuLIN REG 1unit/0.01ml Soln (100units/ml) SC SCH (22:00)
[2023-05-28] MEDS: PIPERACILLIN-TAZOB 3.375GM 100 ML IV SCH ×3 (04:13→16:00)
[2023-05-28] MEDS: VANCOMYCIN 1GM/250ML 250 ML IV SCH (04:57)
[2023-05-28 05:00] VITALS: BP 107/64; PULSE 97; RESP 17; TEMP 98.3; O2SAT 95
[2023-05-28] MEDS: ACCU-CHEK COMFORT CURVE STRIP VI SCH ×2 (06:20→11:05)
[2023-05-28] MEDS: InsuLIN REG 1unit/0.01ml Soln (100units/ml) SC SCH ×3 (06:21→16:14)
[2023-05-28] MEDS ORDERED: CIPR-173 PO (07:02)
[2023-05-28 07:57] LABS: Basophils # (auto) 0 10 ^3/uL (0-0.2); Basophils % (auto) 0.2 % (0.0-2.0); Eosinophils # (auto) 0.1 10 ^3/uL (0-0.8); Eosinophils % (auto) 0.8 % (0.0-7.0); Hematocrit 38.6 % (41.0-53.0); Hemoglobin 12.6 g/dL (13.5-17.5); Lymphocytes # (auto) 1.7 10 ^3/uL (0.4-5.4); Lymphocytes % (auto) 12.7 % (10.0-50.0); Mean Corpuscular Hemoglobin 32.8 pg (28.0-32.0); Mean Corpuscular Hgb Conc. 32.6 g/dL (32.0-36.0); Mean Corpuscular Volume 100.7 fL (80.0-100.0); Monocytes # (auto) 0.9 10 ^3/uL (0-1.3); Monocytes % (auto) 6.8 % (0.0-12.0); Neutrophils # (auto) 10.7 10 ^3/uL (1.6-8.6); Neutrophils % (auto) 79.5 % (37.0-80.0); Red Blood Cells 3.83 10^6/uL (4.5-5.90); Red Cell Distribution Width 15.3 % (11.8-14.3); White Blood Cell 13.4 10^3/uL (4.4-10.8)
[2023-05-28 08:00] VITALS: PULSE 100; RESP 18
[2023-05-28 08:51] LABS: Alanine Aminotransferase 16 U/L (7-40); Alkaline Phosphatase 68 U/L (46-116); Anion Gap 8 (5-15); Aspartate Aminotransferase 15 U/L (13-40); BUN/Creatinine Ratio 8.1 (10.0-20.0); Bilirubin, Total 1.2 mg/dL (0.2-1.0); Blood Urea Nitrogen 7 mg/dL (9-23); Calcium 8.6 mg/dL (8.5-10.1); Carbon Dioxide 24 mmol/L (20-30); Chloride 106 mmol/L (98-107); Glucose 172 mg/dL (74-106); Potassium 3.4 mmol/L (3.5-5.1); Sodium 138 mmol/L (136-145); Total Protein 6.5 g/dL (5.7-8.2)
[2023-05-28 09:00] VITALS: BP 125/86; PULSE 102; RESP 20; TEMP 98.6; O2SAT 92
[2023-05-28 09:56] VITALS: BP 125/86; PULSE 102; RESP 20; TEMP 98.6; O2SAT 92
[2023-05-28] MEDS: TACROLIMUS 1 MG CAP PO SCH (10:00)
[2023-05-28] MEDS: ASPirin 81 mg TAB PO SCH (10:08)
[2023-05-28] MEDS: FAMOTIDINE (10MG/ML) 2ML VL IV SCH (10:08)
[2023-05-28] MEDS: MORPHINE SULFATE INJ 2 MG/ml SYRG IV PRN (11:06)
[2023-05-28] MEDS: SODIUM CHLORIDE 0.9% 1,000 ML IV SCH (11:55)
[2023-05-28 13:21] VITALS: BP 117/58; PULSE 80; RESP 20; TEMP 98.4; O2SAT 92
== END 2023-05-28 16:25 | disposition home health service (06) | DRG 690 ==
LOC: ER 19:34 → EDBD 19:34 → TELE 05-27 05:52 → TELE-EAST 05-27 16:16
PROVIDERS: ADMIT Nurse Practitioner Family; ATTEND Internal Medicine
DX: N39.0 Urinary tract infection, site not specified (principal); Z68.41 Body mass index [BMI] 40.0-44.9, adult; D84.9 Immunodeficiency, unspecified; Z94.4 Liver transplant status; E11.65 Type 2 diabetes mellitus with hyperglycemia; E66.01 Morbid (severe) obesity due to excess calories; E78.5 Hyperlipidemia, unspecified; I10 Essential (primary) hypertension; J44.9 Chronic obstructive pulmonary disease, unspecified; W18.39XA Other fall on same level, initial encounter; Z88.5 Allergy status to narcotic agent; Y93.89 Activity, other specified; Y92.89 Other specified places as the place of occurrence of the external cause; Y99.8 Other external cause status
CPT/HCPCS: 36415; 71045; 73502; 74176; 80053; 81001; 82962; 83605; 83880; 84484; 85025; 87040; 87086; 87088; 87186; 93005; 96365; 96367; 97163; 99291; G0378; J1815; J2543; J3490; J7507